=== PATIENT | male | born 2000 | race Caucasian/White ===

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

== ENCOUNTER 2021-07-30 20:12 | Emergency (ER) | payer OTHER ==
[2021-07-30 20:39] VITALS: BP 125/85; PULSE 82; BMI 22.6
[2021-07-30] MEDS ORDERED: SODIUM CHLORIDE 1,000 ML IV STA (21:08)
[2021-07-30] MEDS ORDERED: ONDANSETRON 4 MG/2 ML VIAL IVPUSH ONE (21:08)
[2021-07-30] MEDS ORDERED: ACETAMINOPHEN 1000 MG/100 ML VIAL (NON FORMULARY) IVPB ONE (21:08)
[2021-07-30] MEDS ORDERED: ACETAMINOPHEN INJECTION 100 ML IVPB ONE (21:21)
[2021-07-30] MEDS ORDERED: ONDANSETRON 4 MG/2 ML VIAL ONE (21:22)
[2021-07-30 21:38] LABS: BASO % 0.2 % (0-2.0); HEMATOCRIT 47.1 % (35.4-49); HEMOGLOBIN 16.3 GM/dL (11.7-16.9); LYMPH % 8.2 % (8-40); MCH 32.3 pg (25.7-33.7); MCHC 34.6 g/dl (32.0-35.9); MEAN CELL VOLUME 93.5 fl (80-96); MEAN PLT VOLUME 9.5 fl (7.5-11.1); MONO % 6.6 % (3.8-10.2); PLATELET COUNT 254 10^3/uL (134-434); RBC 5.03 M/mm3 (4.00-5.60); WHITE BLOOD COUNT 15.4 K/mm3 (4.0-10.0)
[2021-07-30 21:40] LABS: EPI CELLS 9 /uL (0-25.1); HYALINE CASTS 1 /uL (0-3.1); URINE APPEARANCE CLEAR; URINE BACTERIA 20 /uL (0-1359); URINE BILIRUBIN NEGATIVE (NEGATIVE); URINE COLOR YELLOW; URINE GLUCOSE (UA) NEGATIVE (NEGATIVE); URINE KETONE NEGATIVE (NEGATIVE); URINE LEUK ESTERASE NEGATIVE (NEGATIVE); URINE NITRITE NEGATIVE (NEGATIVE); URINE PROTEIN 1+ (NEGATIVE); URINE RBC 11 /uL (0-23.9); URINE WBC 5 /uL (0-25.8)
[2021-07-30 21:46] LABS: INR 1.06 (0.83-1.09)
[2021-07-30 22:05] LABS: CALCIUM 9.2 mg/dL (8.5-10.1)
[2021-07-30 22:06] LABS: ALBUMIN 4.5 g/dl (3.4-5.0); BLOOD UREA NITROGEN 13.2 mg/dL (7-18)
[2021-07-30 22:09] LABS: CREATININE 1.2 mg/dL (0.55-1.3)
[2021-07-30 22:10] LABS: BILIRUBIN,TOTAL 0.7 mg/dL (0.2-1)
[2021-07-30 22:11] LABS: TOT PROT 8.1 g/dl (6.4-8.2)
[2021-07-30] MEDS ORDERED: TAMSULOSIN HCL 0.4 MG CAP PO ONE (22:59)
[2021-07-30] MEDS ORDERED: TAMSULOSIN HCL 0.4 MG CAP ONE (23:14)
== END 2021-07-30 23:18 | disposition home or self-care (01) ==
LOC: JER 20:12
PROC: 3E0333Z Introduction of Anti-inflammatory into Peripheral Vein, Percutaneous Approach (ICD-10-PCS; principal; 2021-07-30)
PROC: 3E033GC Introduction of Other Therapeutic Substance into Peripheral Vein, Percutaneous Approach (ICD-10-PCS; 2021-07-30)
PROC: 3E0337Z Introduction of Electrolytic and Water Balance Substance into Peripheral Vein, Percutaneous Approach (ICD-10-PCS; 2021-07-30)
DX: N20.0 Calculus of kidney (principal)
CPT/HCPCS: 36415; 74176-TC; 80053; 81003; 85025; 85610; 87086; 99284-25; J0131

== ENCOUNTER 2022-11-06 20:09 | Emergency (ER) | payer OTHER ==
[2022-11-06 20:22] VITALS: BP 145/72; PULSE 93; RESP 18; TEMP 97; BMI 23.3
[2022-11-06] MEDS ORDERED: DIPHTH,PERTUSS(ACELL),TET 0.5 ML DISP.SYRIN IM ONE ×3 (21:45→22:24)
[2022-11-06] MEDS ORDERED: KETOROLAC TROMETHAMINE 30 MG/1 ML VIAL IM ONE (21:45)
[2022-11-06] MEDS ORDERED: AMOX TR/POT CLAV 875MG/125MG TABLETS (FP) PO ONE (21:45)
[2022-11-06] MEDS ORDERED: KETOROLAC TROMETHAMINE 30 MG/1 ML VIAL ONE (22:15)
[2022-11-06] MEDS ORDERED: AMOX TR/POT CLAV 875MG/125MG TABLETS (FP) ONE (22:15)
== END 2022-11-06 23:50 | disposition home or self-care (01) ==
LOC: JERFT 20:09 → JER 20:09 → JERFT 23:50
PROC: 3E023GC Introduction of Other Therapeutic Substance into Muscle, Percutaneous Approach (ICD-10-PCS; principal; 2022-11-06)
PROC: 3E0234Z Introduction of Serum, Toxoid and Vaccine into Muscle, Percutaneous Approach (ICD-10-PCS; 2022-11-06)
DX: S61.531A Puncture wound without foreign body of right wrist, initial encounter (principal); W45.8XXA Other foreign body or object entering through skin, initial encounter
CPT/HCPCS: 71046-TC-FY; 73110-TC-RT-FY; 90715; 99284-25